=== PATIENT | male | born 1975 | race Caucasian/White ===

== ENCOUNTER 2017-01-18 09:46 | Emergency (ER) | payer MEDICAID ==
--- OUTSIDE RECORDS SUMMARY | 2017-01-18 10:10 | XMS REPORT | Continuity of Care Document ---
:1975 Author Organization [employer] Address [place] [address] Care Team Providers Name Role Phone Unavailable Primary Care Provider Unavailable Source Comments This disclosure is being made pursuant to the [employer] program and maynot contain all information available regarding this patient.[employer] Active Allergies and Adverse Reactions Not on File Current Medications Be aware that medications may not be up to date as of this document. Alwaysverify current medications with the patient. Not on file Active Problems Not on file Social History Tobacco Use Types Packs/Day Years Used Date Never Assessed Plan of Care Health Maintenance Due Date Last Done Comments Retired-Pertussis Vaccine Adult 1996 Retired-Tetanus Vaccine Adult 1996 Retired-INFLUENZA VACCINE 05/16/2015 Results from Last 3 Months Not on file
--- OUTSIDE RECORDS SUMMARY | 2017-01-18 10:10 | XMS REPORT | Continuity of Care Document ---
:1975 Author Organization [facility] ([facility]) Address [address] [address] Phone [phone] Care Team Providers Name Role Phone Charlie Womack Primary Care Provider [phone] Source Comments This disclosure is being made pursuant to the Care Everywhere program, applicable federal and state laws, and may not contain all informaitonavailable regarding this patient.[facility] ([facility]) Active Allergies and Adverse Reactions No Known Allergies Current Medications Prescription Sig. Disp. Refills Start Date End Date Status albuterol-ipratropiu Use 3 mL by Active m 2.5-0.5 mg/3 mL inhalation 2 times inhalation solution daily. albuterol 90 Use 2 Puffs by 1 Inhaler 03/17/2014 Active mcg/Actuation inhalation every 4 inhaler hours. Indications: CHRONIC OBSTRUCTIVE PULMONARY DISEASE ascorbic acid Take 6,000 mg by Active (VITAMIN C) 1,000 mg mouth daily. tablet cyanocobalamin, Take 3 Tabs by mouth Active VITAMIN B-12, PO 2 times daily. OMEGA-3 FATTY ACIDS Take 1 Cap by mouth Active (FISH OIL daily. CONCENTRATE PO) multivitamin tablet Take 1 Tab by mouth Active daily. CAFFEINE PO Take 1 Cap by mouth Active as needed. RAPID ACTION budesonide-formotero Use 2 Puffs by 1 Inhaler 05/19/2014 Active l (SYMBICORT) inhalation 2 times 160-4.5 daily. 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 CLL (chronic lymphocytic leukemia) 05/03/2014 Immunizations Name Dates Previously Given Next Due Pneumococcal Polysaccharide, PPSV23 (Pneumovax 23) 03/17/2014 Social History Tobacco Use Types Packs/Day Years Used Date Current Every Day Smoker Cigarettes 0.5 20 Smokeless Tobacco: Former User Chew Quit: 04/15/2014 Alcohol Use Drinks/Week oz/Week Comments Yes 1 Glasses of wine Last Filed Vital Signs Vital Sign Reading Time Taken Blood Pressure 125/71 04/24/2015 2:49 PM CDT Pulse 106 04/24/2015 2:49 PM CDT Temperature 36.9 C (98.4 F) 04/24/2015 2:49 PM CDT Respiratory Rate 20 04/24/2015 2:49 PM CDT Height 1.665 m (5' 5.55") 08/05/2014 11:30 AM [employer] Weight 60.328 kg (133 lb) 04/24/2015 2:49 PM CDT Body Mass Index 21.76 04/24/2015 2:49 PM CDT Oxygen Saturation 97% 04/24/2015 2:49 PM CDT Plan of Care Health Maintenance Due Date Last Done Comments Hepatitis B Vaccine (1 of 3 - Primary Series) 1975 Tdap Vaccine 1988 Lipid Disorder Screening 1995 MMR Vaccine 1995 Td Vaccine 1995 Pneumococcal Vaccine (2 of 3 - PCV13) 03/17/2015 03/17/2014 Influenza Vaccine: Seasonal (#1) 04/15/2016 Results from Last 3 Months Not on file
--- OUTSIDE RECORDS SUMMARY | 2017-01-18 10:11 | XMS REPORT | Summary of Care ---
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) Emphysema/COPD(Confirmed) Active CLL [chronic lymphoid leukemia], Active without mention of remission(Confirmed) Hypersomnia(Confirmed) Active Olecranon bursitis of right Active elbow(Confirmed) Chronic fatigue(Confirmed) Active MDD (major depressive disorder), Active single episode, severe(Confirmed) Allergies, Adverse Reactions, Alerts Substance Reaction Severity Status Spiriva1 SWELLING Active 1Lips swell with powder form of medication Medications albuterol 90 mcg/inh inhalation aerosol 2 puff(s), Inhale, q4hr interval, # 1 EA, 5 Refill(s), Start Date: 10/08/16 16: 05:54 [employer], Pharmacy: [facility] [id number] Start Date: 10/08/16 Stop Date: 10/14/16 Status: Discontinuedalbuterol 90 mcg/inh inhalation aerosol 2 puff(s), Inhale, q4hr interval, # 1 EA, 5 Refill(s), Start Date: 10/14/16 15: 00:02 [employer], Pharmacy: [facility] [id number] Start Date: 1/30/17 Status: Orderedalbuterol CFC free 90 mcg/inh inhalation aerosol 2 puff(s), Inhale, q4hr interval, # 1 EA, 5 Refill(s), Start Date: 05/09/16 8:15 :00 CDT, Pharmacy: [facility] [id number] Start Date: 05/09/16 Stop Date: 07/15/16 Status: Discontinuedalbuterol CFC free 90 mcg/inh inhalation aerosol 2 puff(s), Inhale, q4hr interval, # 1 EA, 5 Refill(s), Start Date: 07/15/16 13: 44:58 CDT, Pharmacy: [facility] [id number] Start Date: 07/15/16 Stop Date: 10/08/16 Status: Completedalbuterol HFA See Instructions, 0 Refill(s), Start Date: 08/30/14 11:31:00 [employer] Start Date: 08/30/14 Stop Date: 05/09/16 Status: Discontinuedamoxicillin-clavulanate 500 mg-125 mg oral tablet 500 mg, Oral, q12hr interval, # 14 tab(s), 0 Refill(s), Start Date: 01/18/16 11: 39:00 CDT, Pharmacy: [facility] [id number] Start Date: 01/18/16 Stop Date: 02/29/16 Status: CompletedAugmentin 500 mg-125 mg oral tablet 500 mg, Oral, q8hr interval, # 9 tab(s), 0 Refill(s), Start Date: 12/07/15 9:43: 00 CDT Start Date: 12/07/15 Stop Date: 12/25/15 Status: CompletedAugmentin 875 mg-125 mg oral tablet 875 mg, Oral, q12hr interval, with food or milk, # 20 tab(s), 0 Refill(s), Start Date: 06/14/16 15:06:00 CDT, Pharmacy: [facility] [id number] Start Date: 06/14/16 Stop Date: 07/15/16 Status: Completedazithromycin 250 mg oral tablet 1, Oral, 3x/Wk, # 20 tab(s), 1 Refill(s), Start Date: 05/09/16 8:16:04 CDT, YOUSIF , Pharmacy: [facility] [id number] Start Date: 05/09/16 Stop Date: 06/05/16 Status: Completedazithromycin 250 mg oral tablet 0 Refill(s), Start Date: 12/25/15 10:00:00 CDT Start Date: 12/25/15 Stop Date: 01/18/16 Status: Completedazithromycin 250 mg oral tablet 1, Oral, 3x/Wk, # 20 tab(s), 0 Refill(s), Start Date: 01/18/16 11:37:00 CDT, YOUSIF , Pharmacy: [facility] [place] [id number] Start Date: 01/18/16 Stop Date: 05/09/16 Status: Discontinuedcefdinir 300 mg oral capsule 1 cap(s), Oral, q12hr interval, # 14 cap(s), 0 Refill(s), Start Date: 10/14/16 15:04:00 [employer], Pharmacy: [facility] [place] [address] Start Date: 10/14/16 Status: Orderedcitalopram 20 mg oral tablet 1 tab(s), Oral, Daily, Take 1/2 tablet for 2 weeks, then increase to 1 tablet., # 30 tab(s), 0 Refill(s), Start Date: 07/05/16 14:52:00 CDT, Pharmacy: [facility] [place] [id number] Start Date: 07/05/16 Stop Date: 09/23/16 Status: Completedclarithromycin 500 mg oral tablet 1 tab(s), Oral, q12hr, # 20 tab(s), 0 Refill(s), Start Date: 09/06/16 16:15:00 [employer], Pharmacy: [facility] [place] [address] Start Date: 09/06/16 Stop Date: 09/23/16 Status: CompletedClaritin-D 12 Hour oral tablet, extended release 1 tab(s), Oral, q12hr interval, # 30 tab(s), 1 Refill(s), Start Date: 07/15/16 14:00:00 CDT Start Date: 07/15/16 Stop Date: 08/14/16 Status: CompletedDaliresp 500 mcg oral tablet 1 tab(s), Oral, Daily, # 30 tab(s), 3 Refill(s), Start Date: 02/29/16 16:34:00 CDT, Pharmacy: [facility] [id number], [id number], 10/15/16 Start Date: 02/29/16 Stop Date: 05/06/16 Status: DiscontinueddiphenhydrAMINE 25 mg oral capsule 1 cap(s), Oral, TID, PRN for allergy symptoms, X 2 days, # 6 cap(s), 0 Refill(s) , Start Date: 08/30/14 12:43:00 [employer] Start Date: 08/30/14 Stop Date: 09/01/14 Status: Completeddoxycycline monohydrate 100 mg oral tablet 1 tab(s), Oral, Daily, # 10 tab(s), 0 Refill(s), Start Date: 09/06/16 14:55:00 [employer], Pharmacy: [facility] Start Date: 09/06/16 Stop Date: 09/23/16 Status: CompletedDuoNeb See Instructions, mL Inhale QID, 0 Refill(s), Start Date: 08/30/14 11:32:00 [employer] Start Date: 08/30/14 Stop Date: 07/15/16 Status: DiscontinuedDuoNeb 0.5 mg-2.5 mg/3 mL inhalation solution See Instructions, PRN as needed for shortness of breath or wheezing, mL Inhale QID, # 180 mL, 0 Refill(s), Start Date: 07/15/16 13:45:00 CDT, Pharmacy: [facility] [id number] Start Date: 07/15/16 Stop Date: 10/14/16 Status: DiscontinuedDuoNeb 0.5 mg-2.5 mg/3 mL inhalation solution See Instructions, PRN as needed for shortness of breath or wheezing, mL Inhale QID, # 180 mL, 0 Refill(s), Start Date: 10/14/16 15:00:22 [employer], Pharmacy: [facility] [id number] Start Date: 10/14/16 Status: OrderedGoLYTELY oral powder for reconstitution See Instructions, 240 mL Oral q10min, # 4,000 mL, 0 Refill(s), Start Date: 07/17 10:51:00 CDT, Pharmacy: [facility] Start Date: 07/17/16 Stop Date: 09/23/16 Status: CompletedHYDROCO/APAP TAB 5-325MG 0 Refill(s), Supply Start Date: 06/05/16 Stop Date: 07/15/16 Status: CompletedHYDROcodone-acetaminophen 7.5 mg-325 mg oral tablet 1 tab(s), Oral, q6hr, PRN for pain, # 30 tab(s), 0 Refill(s), Start Date: 16:39:00 CDT, Pharmacy: [facility] [id number] Start Date: 06/13/16 Stop Date: 06/20/16 Status: CompletedHYDROcodone-acetaminophen 7.5mg-325mg oral tablet 1 tab(s), Oral, q6hr, PRN for pain, X 30 days, # 50 tab(s), 0 Refill(s), Start Date: 07/24/16 15:45:21 [employer], Pharmacy: [facility] [id number] Start Date: 07/24/16 Stop Date: 08/19/16 Status: CompletedHYDROcodone-acetaminophen 7.5mg-325mg oral tablet 1 tab(s), Oral, q6hr, PRN for pain, X 30 days, # 30 tab(s), 0 Refill(s), Start Date: 07/03/16 14:39:09 CDT, Pharmacy: [facility] [id number] Start Date: 07/03/16 Stop Date: 07/24/16 Status: CompletedHYDROcodone-acetaminophen 7.5mg-325mg oral tablet 1 tab(s), Oral, q6hr interval, PRN for pain, not to exceed 8 tablets/day, X 14 days, # 56 tab(s), 0 Refill(s), Start Date: 08/19/16 14:15:00 [employer], Earliest Fill Date: 08/22/16, Pharmacy: [facility] [id number] Start Date: 08/19/16 Stop Date: 09/02/16 Status: CompletedLevaquin See Instructions, q24hr interval, 0 Refill(s), Start Date: 08/30/14 11:31:00 [employer] Start Date: 08/30/14 Stop Date: 12/05/15 Status: CompletedLevaquin 500 mg oral tablet 1 tab(s), Oral, q24hr interval, # 7 tab(s), 0 Refill(s), Start Date: 05/09/16 8: 24:00 CDT, Pharmacy: [facility] [id number] Start Date: 05/09/16 Stop Date: 06/05/16 Status: Completedlevofloxacin 500 mg oral tablet 1 tab(s), Oral, Daily, # 10 tab(s), 0 Refill(s), Start Date: 06/13/16 16:46:00 CDT, Pharmacy: [facility] [id number] Start Date: 06/13/16 Stop Date: 06/14/16 Status: DiscontinuedLORazepam 0 Refill(s), Start Date: 06/05/16 15:05:00 CDT Start Date: 06/05/16 Stop Date: 06/05/16 Status: CompletedLORazepam 0.5 mg oral tablet 1 tab(s), Oral, TID, PRN for anxiety, # 42 tab(s), 0 Refill(s), Start Date: 15:23:00 CDT, Pharmacy: [facility] [id number] Start Date: 06/05/16 Stop Date: 06/19/16 Status: DiscontinuedLORazepam 0.5 mg oral tablet 1 tab(s), Oral, TID, PRN for anxiety, 0 Refill(s), Start Date: 06/05/16 15:06: 00 CDT Start Date: 06/05/16 Stop Date: 06/05/16 Status: DiscontinuedLORazepam 0.5 mg oral tablet 1 tab(s), Oral, TID, PRN for anxiety, # 90 tab(s), 0 Refill(s), Start Date: 16:05:58 [employer], Pharmacy: [facility] [id number] Start Date: 10/08/16 Status: OrderedLORazepam 0.5 mg oral tablet 1 tab(s), Oral, TID, PRN for anxiety, # 90 tab(s), 0 Refill(s), Start Date: 14:45:22 CDT, Pharmacy: [facility] [id number] Start Date: 07/05/16 Stop Date: 07/30/16 Status: DiscontinuedLORazepam 0.5 mg oral tablet 1 tab(s), Oral, TID, PRN for anxiety, # 90 tab(s), 0 Refill(s), Start Date: 16:23:11 [employer], Pharmacy: [facility] [id number] Start Date: 07/30/16 Stop Date: 10/08/16 Status: CompletedLORazepam 0.5 mg oral tablet 1 tab(s), Oral, TID, PRN for anxiety, # 90 tab(s), 0 Refill(s), Start Date: 01/28 13:27:22 CDT, Pharmacy: [facility] Start Date: 06/19/16 Stop Date: 07/05/16 Status: DiscontinuedLORazepam 0.5 mg oral tablet 1 tab(s), Oral, TID, PRN for anxiety, # 90 tab(s), 0 Refill(s), Start Date: 01/28 13:23:00 CDT, Pharmacy: [facility] [id number] Start Date: 06/19/16 Stop Date: 06/19/16 Status: DiscontinuedNorco 7.5 mg-325 mg oral tablet 1 tab(s), Oral, q6hr, PRN for pain, # 50 tab(s), 0 Refill(s), Start Date: 16:20:00 [employer], Pharmacy: [facility] [id number] Start Date: 10/08/16 Stop Date: 10/08/16 Status: CompletedNuvigil 250 mg oral tablet See Instructions, 0.5 to 1 tab(s) Oral Daily, # 30 tab(s), 0 Refill(s), Start Date: 10/08/16 17:16:00 [employer], samples given to patient (Rx) Start Date: 10/08/16 Status: OrderedpredniSONE 10 mg oral tablet See Instructions, 5 tabs x 5 days, 4 tabs x 5 days, 3 tabs x 5 days, 2 tabs x 5 days, 1 tab x 5 days, and then 1/2 tab x 6 days., # 78 tab(s), 0 Refill(s), Start Date: 09/06/16 14:56:00 [employer], Pharmacy:[facility] [id number] Start Date: 09/06/16 Stop Date: 10/08/16 Status: CompletedpredniSONE 10 mg oral tablet See Instructions, 40mg qd x 3d, 30 mg qd x 3d, 20 mg qd x 3d, 10 mg qd x 3d. with food, # 30 QS, 0 Refill(s), Start Date: 02/29/16 16:16:00 CDT, Pharmacy: [facility] [id number] Start Date: 02/29/16 Stop Date: 05/06/16 Status: CompletedpredniSONE 10 mg oral tablet See Instructions, 40 mg qd x 3d, 30 mg qd x 3d, 20 mg qd x 3d, 10 mg qd x 3d. with food, # 30 QS, 0 Refill(s), Start Date: 05/09/16 8:24:00 CDT, Pharmacy: [facility] [id number] Start Date: 05/09/16 Stop Date: 06/05/16 Status: CompletedpredniSONE 20 mg oral tablet 0 Refill(s), Start Date: 12/25/15 10:00:00 CDT Start Date: 12/25/15 Stop Date: 01/18/16 Status: CompletedProvigil 200 mg oral tablet 1 tab(s), Oral, qAM, # 30 tab(s), 0 Refill(s), Start Date: 09/06/16 15:01:00 [employer] , Pharmacy: [facility] [id number] Start Date: 09/06/16 Stop Date: 09/12/16 Status: DiscontinuedProvigil 200 mg oral tablet 1 tab(s), Oral, qAM, # 30 tab(s), 0 Refill(s), Start Date: 07/30/16 16:25:00 [employer] , Pharmacy: [facility] [id number] Start Date: 07/30/16 Stop Date: 09/12/16 Status: DiscontinuedQvar 40 mcg/inh inhalation aerosol 2 puff(s), Inhale, Daily, # 1 EA, 3 Refill(s), Start Date: 10/08/16 16:05:56 [employer] , Samples: 1, Pharmacy: [facility] [id number], [id number], 01/12/17 Start Date: 10/08/16 Stop Date: 10/14/16 Status: DiscontinuedQvar 40 mcg/inh inhalation aerosol 2 puff(s), Inhale, Daily, X 30 days, # 1 EA, 3 Refill(s), Start Date: 07/15/16 14:11:00 CDT, Samples: 1, Pharmacy: [facility] [id number], [id number], 01/12/17 Start Date: 07/15/16 Stop Date: 10/08/16 Status: CompletedQvar 40 mcg/inh inhalation aerosol 2 puff(s), Inhale, Daily, # 1 EA, 3 Refill(s), Start Date: 10/14/16 15:00:08 [employer] , Samples: 1, Pharmacy: [facility] [id number], [id number], 01/12/17 Start Date: 10/14/16 Stop Date: 02/11/17 Status: OrderedQvar 80 mcg/inh inhalation aerosol 80 mcg=, Inhale, BID, # 1 EA, 0 Refill(s), Start Date: 10/14/16 15:27:00 [employer], Samples: 2, samples given to patient (Rx), [id number], 08/14/17 Start Date: 10/14/16 Stop Date: 11/13/16 Status: OrderedSpiriva 18 mcg inhalation capsule 1 cap(s), Inhale, Daily, use two inhalations of one capsule for each dose, # 30 EA, 5 Refill(s), Start Date: 03/14/16 10:26:00 CDT, Pharmacy: [facility] [id number] Start Date: 03/14/16 Stop Date: 05/06/16 Status: DiscontinuedSpiriva Respimat 1.25 mcg/inh inhalation aerosol 2 puff(s), Inhale, Daily, # 1 EA, 0 Refill(s), Start Date: 02/29/16 16:33:00 CDT , [id number], 03/14/18 Start Date: 02/29/16 Stop Date: 05/06/16 Status: DiscontinuedSpiriva Respimat 2.5 mcg/inh inhalation aerosol 2 puff(s), Inhale, Daily, # 1 EA, 0 Refill(s), Start Date: 02/29/16 16:28:00 CDT , Pharmacy: [facility] [id number] Start Date: 02/29/16 Stop Date: 05/06/16 Status: DiscontinuedSpiriva Respimat 2.5 mcg/inh inhalation aerosol 2 puff(s), Inhale, Daily, # 1 EA, 4 Refill(s), Start Date: 10/08/16 16:05:59 [employer] , Pharmacy: [facility] [id number] Start Date: 10/08/16 Status: OrderedSpiriva Respimat 2.5 mcg/inh inhalation aerosol 2 puff(s), Inhale, Daily, # 1 EA, 4 Refill(s), Start Date: 05/09/16 8:26:00 CDT , Pharmacy: [facility] [id number] Start Date: 05/09/16 Stop Date: 10/08/16 Status: CompletedSymbicort Inhale, BID, 0 Refill(s), Start Date: 08/30/14 11:33:00 [employer] Start Date: 08/30/14 Stop Date: 02/29/16 Status: CompletedSymbicort 160 mcg-4.5 mcg/inh inhalation aerosol 2 puff(s), Inhale, BID, # 1 EA, 5 Refill(s), Start Date: 05/09/16 8:15:00 CDT, Pharmacy: [facility] [id number] Start Date: 05/09/16 Stop Date: 10/08/16 Status: CompletedSymbicort 160 mcg-4.5 mcg/inh inhalation aerosol 2 puff(s), Inhale, BID, 0 Refill(s), Start Date: 02/29/16 15:23:00 CDT Start Date: 02/29/16 Stop Date: 05/09/16 Status: DiscontinuedSymbicort 160 mcg-4.5 mcg/inh inhalation aerosol 2 puff(s), Inhale, BID, # 1 EA, 5 Refill(s), Start Date: 10/08/16 16:05:57 [employer], Pharmacy: [facility] [id number] Start Date: 10/08/16 Status: OrderedWellbutrin XL 150 mg/24 hours oral tablet, extended release 1 tab(s), Oral, Daily, # 30 tab(s), 0 Refill(s), Start Date: 01/18/16 11:01:00 CDT Start Date: 01/18/16 Stop Date: 02/29/16 Status: CompletedWellbutrin XL 150 mg/24 hours oral tablet, extended release 1 tab(s), Oral, Daily, # 30 tab(s), 0 Refill(s), Start Date: 07/05/16 14:43:00 CDT Start Date: 07/05/16 Stop Date: 07/05/16 Status: DiscontinuedWellbutrin XL 150 mg/24 hours oral tablet, extended release 1 tab(s), Oral, Daily, # 30 tab(s), 0 Refill(s), Start Date: 06/19/16 13:26:35 CDT, Pharmacy: [facility] Start Date: 06/19/16 Stop Date: 06/26/16 Status: DiscontinuedWellbutrin XL 150 mg/24 hours oral tablet, extended release 1 tab(s), Oral, Daily, # 30 tab(s), 0 Refill(s), Start Date: 06/19/16 13:23:00 CDT, Pharmacy: [facility] [id number] Start Date: 06/19/16 Stop Date: 06/19/16 Status: DiscontinuedZithromax 250 mg oral tablet 1 tab(s), Oral, 3x/Wk, # 15 QS, 1 Refill(s), Start Date: 07/15/16 14:00:00 CDT, Pharmacy: [facility] Start Date: 07/15/16 Stop Date: 09/06/16 Status: CompletedZithromax 250 mg oral tablet 1 tab(s), Oral, 3x/Wk, # 15 QS, 1 Refill(s), Start Date: 10/08/16 16:05:55 [employer], Pharmacy: [facility] [id number] Start Date: 10/08/16 Stop Date: 10/14/16 Status: CompletedZithromax 250 mg oral tablet See Instructions, as directed on package labeling, # 6 tab(s), 0 Refill(s), Start Date: 02/29/16 16:14:00 CDT, Pharmacy: [facility] [id number] Start Date: 02/29/16 Stop Date: 05/09/16 Status: CompletedZithromax 250 mg oral tablet 1 tab(s), Oral, 3x/Wk, # 15 QS, 1 Refill(s), Start Date: 09/06/16 14:43:34 [employer], Pharmacy: [email or web address] [id number] Start Date: 09/06/16 Stop Date: 10/08/16 Status: Completed Results Patient Viewable Results Most recent to oldest [Reference Range]: 1 WBC [4.8-10.8 thou/mm3] 15.4 thou/mm3 *HI* (10/14/16 3:49 PM) RBC [4.60-6.00 Mil/mm3] 5.17 Mil/mm3 (10/14/16 3:49 PM) Hgb [14.0-18.0 g/dL] 15.8 g/dL (10/14/16 3:49 PM) Hct [42.0-52.0 %] 47.9 % (10/14/16 3:49 PM) MCV [80.0-94.0 fL] 92.6 fL (10/14/16 3:49 PM) MCH [25.0-38.0 pg/cell] 30.6 pg/cell (10/14/16 3:49 PM) MCHC [31.0-37.0 g/dL] 33.0 g/dL (10/14/16 3:49 PM) RDW [1.0-48.0 fL] 47.8 fL (10/14/16 3:49 PM) Platelet [130-400 thou/mm3] 277 thou/mm3 (10/14/16 3:49 PM) Sodium Lvl [135-144 mEq/L] 141 mEq/L (10/14/16 3:49 PM) Potassium Lvl [3.3-4.8 mEq/L] 4.9 mEq/L *HI* (10/14/16 3:49 PM) Chloride Lvl [98-107 mEq/L] 101 mEq/L (10/14/16 3:49 PM) Bicarbonate Lvl [22-30 mmol/L] 31 mmol/L *HI* (10/14/16 3:49 PM) Anion Gap [10.0-20.0] 13.9 (10/14/16 3:49 PM) Glucose Lvl [70-108 mg/dL] 82 mg/dL (10/14/16 3:49 PM) BUN [7-21 mg/dL] 17 mg/dL (10/14/16 3:49 PM) Creatinine Lvl [0.50-1.20 mg/dL] 0.77 mg/dL (10/14/16 3:49 PM) BUN/Creat Ratio 22.1 *NA* (10/14/16 3:49 PM) eGFR AA [>=60] >60 (10/14/16 3:49 PM) eGFR GERONIMO [>=60] >60 (10/14/16 3:49 PM) Calcium Lvl [8.6-10.2 mg/dL] 9.0 mg/dL (10/14/16 3:49 PM) Total Protein [6.4-8.3 g/dL] 6.5 g/dL (10/14/16 3:49 PM) Albumin Lvl [3.5-5.2 g/dL] 4.4 g/dL (10/14/16 3:49 PM) Globulin 2.1 *NA* (10/14/16 3:49 PM) A/G Ratio [0.9-1.8] 2.1 *HI* (10/14/16 3:49 PM) Bilirubin Total [0.1-1.0 mg/dL] 0.2 mg/dL (10/14/16 3:49 PM) Alkaline Phosphatase [39-129 unit/L] 57 unit/L (10/14/16 3:49 PM) AST [0-39 unit/L] 14 unit/L (10/14/16 3:49 PM) ALT [0-40 unit/L] 10 unit/L (10/14/16 3:49 PM) Estimated Creatinine Clearance 111.86 mL/min (10/14/16 4:52 PM) Immunizations Given and Recorded Vaccine Date Status Refusal Reason tetanus/diphth/pertuss (Tdap) adult/adol 07/09/16 Given influenza virus vaccine, inactivated1 07/09/16 Given influenza virus vaccine, inactivated 07/09/16 Given influenza virus vaccine, inactivated2 07/09/16 Given influenza virus vaccine, inactivated 06/15/15 Recorded pneumococcal 23-polyvalent vaccine 06/15/15 Recorded 1Early/Late Reason: Other : error in [id number]/Late Reason: Other : diagnosis Procedures Procedure Date Related Diagnosis Body Site Arterial graft1 Tonsillectomy and adenoidectomy; younger than age 12 1left arm, left leg Social History No data available for this section Assessment and Plan No data available for this section
--- OUTSIDE RECORDS SUMMARY | 2017-01-18 10:11 | XMS REPORT | Summary of Care ---
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], without mention of remission Discharge Diagnosis: Tobacco use Discharge Diagnosis: Hemoptysis Discharge Diagnosis: Emphysema/COPD Discharge Diagnosis: COPD (chronic obstructive pulmonary disease) Discharge Disposition: 01 Discharged to Home or Self Care Attending Physician: EPHRAIM Fang Referring Physician: EPHRAIM Fang Vital Signs Most recent to oldest [Reference Range]: 1 Temperature Tympanic [36.6-38.1 DegC] 37.0 DegC (10/14/16 2:31 PM) Temperature C to F 98.6 (10/14/16 2:31 PM) Peripheral Pulse Rate [60-100 bpm] 81 bpm (10/14/16 2:31 PM) Respiratory Rate [12-20 br/min] 16 br/min (10/14/16 2:31 PM) SpO2 93 % (10/14/16 2:31 PM) SpO2 Location Right hand (10/14/16 2:31 PM) Blood Pressure [90-130/60-90 mmHg] 116/64mmHg (10/14/16 2:31 PM) Mean Arterial Pressure, Cuff 81 mmHg (10/14/16 2:31 PM) Height/Length Measured 174 cm (10/14/16 2:31 PM) Weight Dosing 61.40 kg1 (10/14/16 2:33 PM) Weight Measured 61.4 kg (10/14/16 2:31 PM) BSA Measured 1.74 m2 (10/14/16 2:31 PM) Body Mass Index Measured 20.28 kg/m2 (10/14/16 2:31 PM) 1Result Comment: This result was because the dosing weight was either not entered or it is>30 days old. This result is based off: Weight Measured October 14, 2016 14:31:00 [employer] by Shady Maher Problem List Condition Effective Dates Status Health [...] 5 Refill(s), Start Date: 10/08/16 16: 05:54 [employer], Pharmacy: [facility] [id number] Start Date: 10/08/16 Stop Date: 10/14/16 Status: Discontinuedalbuterol 90 mcg/inh inhalation aerosol 2 puff(s), Inhale, q4hr interval, # 1 EA, 5 Refill(s), Start Date: 10/14/16 15: 00:02 [employer], Pharmacy: [facility] [id number] Start Date: 10/14/16 Status: Orderedalbuterol CFC free 90 mcg/inh inhalation aerosol 2 puff(s), Inhale, q4hr interval, # 1 EA, 5 Refill(s), Start Date: 05/09/16 8:15 :00 CDT, Pharmacy: [facility] [id number] Start Date: 05/09/16 Stop Date: 07/15/16 Status: Discontinuedalbuterol CFC free 90 mcg/inh inhalation aerosol 2 puff(s), Inhale, q4hr interval, # 1 EA, 5 Refill(s), Start Date: 07/15/16 13: 44:58 CDT, Pharmacy: [facility] [id number] Start Date: 07/15/16 Stop Date: 10/08/16 Status: Completedalbuterol HFA See Instructions, 0 Refill(s), Start Date: 08/30/14 11:31:00 [employer] Start Date: 08/30/14 Stop Date: 05/09/16 Status: Discontinuedamoxicillin-clavulanate 500 mg-125 mg oral tablet 500 mg, Oral, q12hr interval, # 14 tab(s), 0 Refill(s), Start Date: 01/18/16 11: 39:00 CDT, Pharmacy: [facility] [id number] Start Date: 01/18/16 Stop Date: 02/29/16 Status: CompletedAugmentin 500 mg-125 mg oral tablet 500 mg, Oral, q8hr interval, # 9 tab(s), 0 Refill(s), Start Date: 12/07/15 9:43: 00 CDT Start Date: 12/07/15 Stop Date: 12/25/15 Status: CompletedAugmentin 875 mg-125 mg oral tablet 875 mg, Oral, q12hr interval, with food or milk, # 20 tab(s), 0 Refill(s), Start Date: 06/14/16 15:06:00 CDT, Pharmacy: [facility] [id number] Start Date: 06/14/16 Stop Date: 07/15/16 Status: Completedazithromycin 250 mg oral tablet 1, Oral, 3x/Wk, # 20 tab(s), 1 Refill(s), Start Date: 05/09/16 8:16:04 CDTYOUSIF , Pharmacy: [facility] [id number] Start Date: 05/09/16 Stop Date: 06/05/16 Status: Completedazithromycin 250 mg oral tablet 0 Refill(s), Start Date: 12/25/15 10:00:00 CDT Start Date: 12/25/15 Stop Date: 01/18/16 Status: Completedazithromycin 250 mg oral tablet 1, Oral, 3x/Wk, # 20 tab(s), 0 Refill(s), Start Date: 01/18/16 11:37:00 CDTYOUSIF , Pharmacy: [facility] [id number] Start Date: 01/18/16 Stop Date: 05/09/16 Status: Discontinuedcefdinir 300 mg oral capsule 1 cap(s), Oral, q12hr interval, # 14 cap(s), 0 Refill(s), Start Date: 10/14/16 15:04:00 [employer], Pharmacy: [facility] [place] [address] Start Date: 10/14/16 Status: Orderedcitalopram 20 mg oral tablet 1 tab(s), Oral, Daily, Take 1/2 tablet for 2 weeks, then increase to 1 tablet., # 30 tab(s), 0 Refill(s), Start Date: 07/05/16 14:52:00 CDT, [facility]: [facility] Start Date: 07/05/16 Stop Date: 09/23/16 Status: Completedclarithromycin 500 mg oral tablet 1 tab(s), Oral, q12hr, # 20 tab(s), 0 Refill(s), Start Date: 09/06/16 16:15:00 [employer], [facility] [place] [address] Start Date: 09/06/16 Stop Date: 09/23/16 Status: CompletedClaritin-D 12 Hour oral tablet, extended release 1 tab(s), Oral, q12hr interval, # 30 tab(s), 1 Refill(s), Start Date: 07/15/16 14:00:00 CDT Start Date: 07/15/16 Stop Date: 08/14/16 Status: CompletedDaliresp 500 mcg oral tablet 1 tab(s), Oral, Daily, # 30 tab(s), 3 Refill(s), Start Date: 02/29/16 16:34:00 CDT, Pharmacy: [facility] [id number], [id number], 10/15/16 Start Date: 02/29/16 Stop Date: 05/06/16 Status: DiscontinueddiphenhydrAMINE 25 mg oral capsule 1 cap(s), Oral, TID, PRN for allergy symptoms, X 2 days, # 6 cap(s), 0 Refill(s) , Start Date: 08/30/14 12:43:00 [employer] Start Date: 08/30/14 Stop Date: 09/01/14 Status: Completeddoxycycline monohydrate 100 mg oral tablet 1 tab(s), Oral, Daily, # 10 tab(s), 0 Refill(s), Start Date: 09/06/16 14:55:00 [employer], Pharmacy: [facility] [id number] Start Date: 09/06/16 Stop Date: 09/23/16 Status: CompletedDuoNeb See Instructions, mL Inhale QID, 0 Refill(s), Start Date: 08/30/14 11:32:00 [employer] Start Date: 08/30/14 Stop Date: 07/15/16 Status: DiscontinuedDuoNeb 0.5 mg-2.5 mg/3 mL inhalation solution See Instructions, PRN as needed for shortness of breath or wheezing, mL Inhale QID, # 180 mL, 0 Refill(s), Start Date: 07/15/16 13:45:00 CDT, Pharmacy: [facility] [id number] Start Date: 07/15/16 Stop Date: 10/14/16 Status: DiscontinuedDuoNeb 0.5 mg-2.5 mg/3 mL inhalation solution See Instructions, PRN as needed for shortness of breath or wheezing, mL Inhale QID, # 180 mL, 0 Refill(s), Start Date: 10/14/16 15:00:22 [employer], Pharmacy: [facility] [id number] Start Date: 10/14/16 Status: OrderedGoLYTELY oral powder for reconstitution See Instructions, 240 mL Oral q10min, # 4,000 mL, 0 Refill(s), Start Date: 07/17 10:51:00 CDT, Pharmacy: [facility] [id number] Start Date: 07/17/16 Stop Date: 09/23/16 Status: CompletedHYDROCO/APAP TAB 5-325MG 0 Refill(s), Supply Start Date: 06/05/16 Stop Date: 07/15/16 Status: CompletedHYDROcodone-acetaminophen 7.5 mg-325 mg oral tablet 1 tab(s), Oral, q6hr, PRN for pain, # 30 tab(s), 0 Refill(s), Start Date: 16:39:00 CDT, Pharmacy: [facility] [id number] Start Date: 06/13/16 Stop Date: 06/20/16 Status: CompletedHYDROcodone-acetaminophen 7.5mg-325mg oral tablet 1 tab(s), Oral, q6hr, PRN for pain, X 30 days, # 50 tab(s), 0 Refill(s), Start Date: 07/24/16 15:45:21 [employer], Pharmacy: [facility] [id number] Start Date: 07/24/16 Stop Date: 08/19/16 Status: CompletedHYDROcodone-acetaminophen 7.5mg-325mg oral tablet 1 tab(s), Oral, q6hr, PRN for pain, X 30 days, # 30 tab(s), 0 Refill(s), Start Date: 07/03/16 14:39:09 CDT, Pharmacy: [facility] [id number] Start Date: 07/03/16 Stop Date: 07/24/16 Status: CompletedHYDROcodone-acetaminophen 7.5mg-325mg oral tablet 1 tab(s), Oral, q6hr interval, PRN for pain, not to exceed 8 tablets/day, X 14 days, # 56 tab(s), 0 Refill(s), Start Date: 08/19/16 14:15:00 [employer], Earliest Fill Date: 08/22/16, [id number] Start Date: 08/19/16 Stop Date: 09/02/16 Status: CompletedLevaquin See Instructions, q24hr interval, 0 Refill(s), Start Date: 08/30/14 11:31:00 [employer] Start Date: 08/30/14 Stop Date: 12/05/15 Status: CompletedLevaquin 500 mg oral tablet 1 tab(s), Oral, q24hr interval, # 7 tab(s), 0 Refill(s), Start Date: 05/09/16 8: 24:00 CDT, Pharmacy: [facility] [id number] Start Date: 05/09/16 Stop Date: 06/05/16 Status: Completedlevofloxacin 500 mg oral tablet 1 tab(s), Oral, Daily, # 10 tab(s), 0 Refill(s), Start Date: 06/13/16 16:46:00 CDT, Pharmacy: [facility] [id number] Start Date: 06/13/16 Stop Date: 06/14/16 Status: DiscontinuedLORazepam 0 Refill(s), Start Date: 06/05/16 15:05:00 CDT Start Date: 06/05/16 Stop Date: 06/05/16 Status: CompletedLORazepam 0.5 mg oral tablet 1 tab(s), Oral, TID, PRN for anxiety, # 42 tab(s), 0 Refill(s), Start Date: 15:23:00 CDT, Pharmacy: [facility] [id number] Start Date: 06/05/16 Stop Date: 06/19/16 Status: DiscontinuedLORazepam 0.5 mg oral tablet 1 tab(s), Oral, TID, PRN for anxiety, 0 Refill(s), Start Date: 06/05/16 15:06: 00 CDT Start Date: 06/05/16 Stop Date: 06/05/16 Status: DiscontinuedLORazepam 0.5 mg oral tablet 1 tab(s), Oral, TID, PRN for anxiety, # 90 tab(s), 0 Refill(s), Start Date: 16:05:58 [employer], Pharmacy: [facility] Start Date: 10/08/16 Status: OrderedLORazepam 0.5 mg oral tablet 1 tab(s), Oral, TID, PRN for anxiety, # 90 tab(s), 0 Refill(s), Start Date: 14:45:22 CDT, [id number] Start Date: 07/05/16 Stop Date: 07/30/16 Status: DiscontinuedLORazepam 0.5 mg oral tablet 1 tab(s), Oral, TID, PRN for anxiety, # 90 tab(s), 0 Refill(s), Start Date: 16:23:11 [employer], Pharmacy: [facility] [place] [id number] Start Date: 07/30/16 Stop Date: 10/08/16 Status: CompletedLORazepam 0.5 mg oral tablet 1 tab(s), Oral, TID, PRN for anxiety, # 90 tab(s), 0 Refill(s), Start Date: 01/28 13:27:22 CDT, Pharmacy: [facility] Start Date: 06/19/16 Stop Date: 07/05/16 Status: DiscontinuedLORazepam 0.5 mg oral tablet 1 tab(s), Oral, TID, PRN for anxiety, # 90 tab(s), 0 Refill(s), Start Date: 01/28 13:23:00 CDT, Pharmacy: [facility] [id number] Start Date: 06/19/16 Stop Date: 06/19/16 Status: DiscontinuedNorco 7.5 mg-325 mg oral tablet 1 tab(s), Oral, q6hr, PRN for pain, # 50 tab(s), 0 Refill(s), Start Date: 16:20:00 [employer], Pharmacy: [facility] [id number] Start Date: 10/08/16 Stop Date: 10/08/16 Status: CompletedNuvigil 250 mg oral tablet See Instructions, 0.5 to 1 tab(s) Oral Daily, # 30 tab(s), 0 Refill(s), Start Date: 10/08/16 17:16:00 [employer], samples given to patient (Rx) Start Date: 10/08/16 Status: OrderedpredniSONE 10 mg oral tablet See Instructions, 5 tabs x 5 days, 4 tabs x 5 days, 3 tabs x 5 days, 2 tabs x 5 days, 1 tab x 5 days, and then 1/2 tab x 6 days., # 78 tab(s), 0 Refill(s), Start Date: 09/06/16 14:56:00 [employer], Pharmacy:[facility] [id number] Start Date: 09/06/16 Stop Date: 10/08/16 Status: CompletedpredniSONE 10 mg oral tablet See Instructions, 40mg qd x 3d, 30 mg qd x 3d, 20 mg qd x 3d, 10 mg qd x 3d. with food, # 30 QS, 0 Refill(s), Start Date: 02/29/16 16:16:00 CDT, Pharmacy: [facility] [id number] Start Date: 02/29/16 Stop Date: 05/06/16 Status: CompletedpredniSONE 10 mg oral tablet See Instructions, 40 mg qd x 3d, 30 mg qd x 3d, 20 mg qd x 3d, 10 mg qd x 3d. with food, # 30 QS, 0 Refill(s), Start Date: 05/09/16 8:24:00 CDT, Pharmacy: [facility] Start Date: 05/09/16 Stop Date: 06/05/16 Status: CompletedpredniSONE 20 mg oral tablet 0 Refill(s), Start Date: 12/25/15 10:00:00 CDT Start Date: 12/25/15 Stop Date: 01/18/16 Status: CompletedProvigil 200 mg oral tablet 1 tab(s), Oral, qAM, # 30 tab(s), 0 Refill(s), Start Date: 09/06/16 15:01:00 [employer] , Pharmacy: [facility] Start Date: 09/06/16 Stop Date: 09/12/16 Status: DiscontinuedProvigil 200 mg oral tablet 1 tab(s), Oral, qAM, # 30 tab(s), 0 Refill(s), Start Date: 07/30/16 16:25:00 [employer] , Pharmacy: [facility] [id number] Start Date: 07/30/16 Stop Date: 09/12/16 Status: DiscontinuedQvar 40 mcg/inh inhalation aerosol 2 puff(s), Inhale, Daily, # 1 EA, 3 Refill(s), Start Date: 10/08/16 16:05:56 [employer] , Samples: 1, Pharmacy: [facility] [id number], [id number], 01/12/17 Start Date: 10/08/16 Stop Date: 10/14/16 Status: DiscontinuedQvar 40 mcg/inh inhalation aerosol 2 puff(s), Inhale, Daily, X 30 days, # 1 EA, 3 Refill(s), Start Date: 07/15/16 14:11:00 CDT, Samples: 1, Pharmacy: [facility] [id number], [id number], 01/12/17 Start Date: 07/15/16 Stop Date: 10/08/16 Status: CompletedQvar 40 mcg/inh inhalation aerosol 2 puff(s), Inhale, Daily, # 1 EA, 3 Refill(s), Start Date: 10/14/16 15:00:08 [employer] , Samples: 1, Pharmacy: [facility] [id number], [id number], 01/12/17 Start Date: 10/14/16 Stop Date: 02/11/17 Status: OrderedQvar 80 mcg/inh inhalation aerosol 80 mcg=, Inhale, BID, # 1 EA, 0 Refill(s), Start Date: 10/14/16 15:27:00 [employer], Samples: 2, samples given to patient (Rx), [id number], 08/14/17 Start Date: 10/14/16 Stop Date: 11/13/16 Status: OrderedSolumedrol (office) 62.5 mg, IM, ONETIME, First Dose: 10/14/16 15:42:00 [employer], Stop Date: 10/14/16 15: 42:00 [employer], Diagnosis: COPD (chronic obstructive pulmonary disease) Start Date: 10/14/16 Stop Date: 10/14/16 Status: CompletedSpiriva 18 mcg inhalation capsule 1 cap(s), Inhale, Daily, use two inhalations of one capsule for each dose, # 30 EA, 5 Refill(s), Start Date: 03/14/16 10:26:00 CDT, Pharmacy: [facility] [id number] Start Date: 03/14/16 Stop Date: 05/06/16 Status: DiscontinuedSpiriva Respimat 1.25 mcg/inh inhalation aerosol 2 puff(s), Inhale, Daily, # 1 EA, 0 Refill(s), Start Date: 02/29/16 16:33:00 CDT , [id number], 03/14/18 Start Date: 02/29/16 Stop Date: 05/06/16 Status: DiscontinuedSpiriva Respimat 2.5 mcg/inh inhalation aerosol 2 puff(s), Inhale, Daily, # 1 EA, 0 Refill(s), Start Date: 02/29/16 16:28:00 CDT , Pharmacy: [facility] [id number] Start Date: 02/29/16 Stop Date: 05/06/16 Status: DiscontinuedSpiriva Respimat 2.5 mcg/inh inhalation aerosol 2 puff(s), Inhale, Daily, # 1 EA, 4 Refill(s), Start Date: 10/08/16 16:05:59 [employer] , Pharmacy: [facility] [id number] Start Date: 10/08/16 Status: OrderedSpiriva Respimat 2.5 mcg/inh inhalation aerosol 2 puff(s), Inhale, Daily, # 1 EA, 4 Refill(s), Start Date: 05/09/16 8:26:00 CDT , Pharmacy: [facility] [id number] Start Date: 05/09/16 Stop Date: 10/08/16 Status: CompletedSymbicort Inhale, BID, 0 Refill(s), Start Date: 08/30/14 11:33:00 [employer] Start Date: 08/30/14 Stop Date: 02/29/16 Status: CompletedSymbicort 160 mcg-4.5 mcg/inh inhalation aerosol 2 puff(s), Inhale, BID, # 1 EA, 5 Refill(s), Start Date: 05/09/16 8:15:00 CDT, Pharmacy: [facility] [id number] Start Date: 05/09/16 Stop Date: 10/08/16 Status: CompletedSymbicort 160 mcg-4.5 mcg/inh inhalation aerosol 2 puff(s), Inhale, BID, 0 Refill(s), Start Date: 02/29/16 15:23:00 CDT Start Date: 02/29/16 Stop Date: 05/09/16 Status: DiscontinuedSymbicort 160 mcg-4.5 mcg/inh inhalation aerosol 2 puff(s), Inhale, BID, # 1 EA, 5 Refill(s), Start Date: 10/08/16 16:05:57 [employer], Pharmacy: [facility] [id number] Start Date: 10/08/16 Status: OrderedWellbutrin XL 150 [...] Refill(s), Start Date: 06/19/16 13:26:35 CDT, Pharmacy: [facility] Start Date: 06/19/16 Stop Date: 06/26/16 Status: DiscontinuedWellbutrin XL 150 mg/24 hours oral tablet, extended release 1 tab(s), Oral, Daily, # 30 tab(s), 0 Refill(s), Start Date: 06/19/16 13:23:00 CDT, Pharmacy: [facility] Start Date: 06/19/16 Stop Date: 06/19/16 Status: DiscontinuedZithromax 250 mg oral tablet 1 tab(s), Oral, 3x/Wk, # 15 QS, 1 Refill(s), Start Date: 07/15/16 14:00:00 CDT, Pharmacy: [facility] [id number] Start Date: 07/15/16 Stop Date: 09/06/16 Status: CompletedZithromax 250 mg oral tablet 1 tab(s), Oral, 3x/Wk, # 15 QS, 1 Refill(s), Start Date: 10/08/16 16:05:55 [employer], Pharmacy: [facility] [id number] Start Date: 10/08/16 Stop Date: 10/14/16 Status: CompletedZithromax 250 mg oral tablet See Instructions, as directed on package labeling, # 6 tab(s), 0 Refill(s), Start Date: 02/29/16 16:14:00 CDT, Pharmacy: [facility] [id number] Start Date: 02/29/16 Stop Date: 05/09/16 Status: CompletedZithromax 250 mg oral tablet 1 tab(s), Oral, 3x/Wk, # 15 QS, 1 Refill(s), Start Date: 09/06/16 14:43:34 [employer], Pharmacy: [facility] [id number] Start Date: 09/06/16 Stop Date: 10/08/16 Status: Completed Results No data available for this section Immunizations Given and Recorded Vaccine Date Status Refusal Reason tetanus/diphth/pertuss (Tdap) adult/adol 07/09/16 Given influenza virus vaccine, inactivated1 07/09/16 Given influenza virus vaccine, inactivated 07/09/16 Given influenza virus vaccine, inactivated2 07/09/16 Given influenza virus vaccine, inactivated 06/15/15 Recorded pneumococcal 23-polyvalent vaccine 06/15/15 Recorded 1Early/Late Reason: Other : error in [id number]/Late Reason: Other : diagnosis Procedures Procedure Date Related Diagnosis Body Site Arterial graft1 Tonsillectomy and adenoidectomy; younger than age 12 1left arm, left leg Social History No data available for this section Assessment and Plan No data available for this section
[2017-01-18 10:13] LABS: Hematocrit 42.7 % (42.0-52.0); Hemoglobin 14.6 gm/dL (13.5-18.0); Mean Cell Volume 91.4 fl (78-100); Mean Corpuscular Hemoglobin 31.3 pg (27-31); Mean Corpuscular Hgb Conc 34.2 g/dl (32-36); Platelet Count 303 K/mm3 (150-450); Red Blood Count 4.67 M/mm3 (4.7-6.0); Red Cell Distribution Width 13.5 % (11.5-14.0); White Blood Count 20.6 K/mm3 (4.0-10.5)
[2017-01-18 10:16] LABS: Total Cells Counted 100
[2017-01-18 10:23] LABS: ALT 20 U/L (19-67); AST 25 U/L (0-48); Albumin * 4.7 gm/dl (3.4-5.0); Alkaline Phosphatase * 60 U/L (50-170); Anion Gap 15.7 mmol/L (6.8-13.8); BUN/Creatinine Ratio 20.7 (9.0-21.6); Bilirubin, Total 0.7 mg/dL (0.0-1.1); Blood Urea Nitrogen 25 mg/dL (6-23); Ca. Corrected For Albumin 8.4 mg/dL (8.4-10.2); Calcium * 9.3 mg/dL (7.9-10.9); Carbon Dioxide 26.6 mmol/L (24-32.6); Chloride 105 mmol/L (97-106); Glucose * 155 mg/dL (70-110); Lipase 119 U/L (73-393); Potassium 3.3 mmol/L (3.4-4.6); Salicylate 4.4 mg/dL (2.8-20.0); Sodium 144 mmol/L (132-142); Total Protein 7.5 gm/dL (6.2-8.2)
[2017-01-18 10:38] LABS: Atypical (Reactive) Lymph 2 % (0-2); Eosinophil 2 % (0-3); Lymphocyte 63 % (20-51); Monocyte 1 % (0-9); Neutrophil 32 % (42-75); Neutrophil # 6.6 K/mm3 (1.3-6.0); Platelet Estimate Normal (NORMAL); RBC Morphology Normal (NORMAL)
[2017-01-18] MEDS ORDERED: LORazepam 2 MG/ML DISP.SYRIN IV ONE ×3 (12:08→23:35)
[2017-01-18] MEDS ORDERED: KETOROLAC TROMETHAMINE 30 MG/ML VIAL IV ONE ×2 (14:10→23:36)
[2017-01-18] MEDS ORDERED: KETOROLAC TROMETHAMINE 30 MG/ML VIAL ONE ×2 (14:11→23:46)
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
[2017-01-18 15:40] LABS: Cocaine Ur Negative (NEGATIVE); Urine Barbiturate Negative (NEGATIVE); Urine Benzodiazepines Negative (NEGATIVE); Urine Opiates Negative (NEGATIVE); Urine PCP Negative (NEGATIVE); Urine THC Negative (NEGATIVE)
[2017-01-18] MEDS ORDERED: NICOTINE 21 MG PATC TD ONE (18:58)
[2017-01-18] MEDS ORDERED: NICOTINE 21 MG PATC TD SCH (19:00)
[2017-01-18] MEDS ORDERED: LORazepam 2 MG/ML DISP.SYRIN ONE (23:46)
[2017-01-19] MEDS ORDERED: KETOROLAC TROMETHAMINE 30 MG/ML VIAL IV ONE (09:51)
[2017-01-19] MEDS ORDERED: KETOROLAC TROMETHAMINE 30 MG/ML VIAL ONE (09:54)
[2017-01-19] MEDS ORDERED: NICOTINE 21 MG PATC TD SCH ×3 (10:00→21:15)
[2017-01-19] MEDS ORDERED: LORazepam 1 MG TABLET PO PRN (15:00)
--- NOTE | 2017-01-19 16:38 | PN ---
Progess Note - Interim Narrative: 01/19/17 16:34 I saw the patient 01/19/17. He is medically stable. We are awaiting psych placement as he is here under committal. Medically stable, continue present management pending placement.
[2017-01-19] MEDS ORDERED: IBUPROFEN 400 MG TABLET PO ONE (17:41)
[2017-01-19] MEDS ORDERED: IBUPROFEN 400 MG TABLET ONE (17:49)
[2017-01-19] MEDS ORDERED: NICOTINE 21 MG PATC TD ONE (21:18)
[2017-01-19] MEDS ORDERED: LORazepam 1 MG TABLET PO ONE (22:36)
[2017-01-20] MEDS ORDERED: diphenhydrAMINE HCL 25 MG CAPSULE PO ONE (01:28)
[2017-01-20] MEDS ORDERED: diphenhydrAMINE HCL 25 MG CAPSULE ONE (01:30)
[2017-01-20] MEDS ORDERED: LORazepam 1 MG TABLET PO ONE (11:18)
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
--- NOTE | 2017-01-20 12:28 | PN ---
Progess Note - Interim Narrative: 01/20/17 12:25 Patient is stable. Denies suicidal ideation or homicidal ideation. No new medical complaints. As it is Friday with no accepting facilities I asked Psychiatry here to see the patient. Psychiatry here evaluated the patient and recommends discharge with outpatient follow-up. Please see psychiatry note for full psych H&P. Their recommendation is discharge with outpatient follow-up. Patient medically stable.
[2017-01-20 14:29] VITALS: BP 119/84
== END 2017-01-20 14:13 | disposition home or self-care (01) ==
LOC: ER 09:46
DX: T14.91 Suicide attempt (principal); Z85.6 Personal history of leukemia; F17.210 Nicotine dependence, cigarettes, uncomplicated
CPT/HCPCS: 36415; 70498; 80053; 80307; 83690; 84443; 85025; 96374; 96375; 99281; 99284; G0480; G0481